=== PATIENT | female | born 1955 | race Caucasian/White ===

== ENCOUNTER 2023-06-04 12:43 | Outpatient (OUT) | payer MEDICARE, SELFPAY ==
--- NOTE | 2023-06-04 12:46 | MM_ITS ---
Patient Name: CLAY SARKAR MR#: [id number] : 1955 Exam Date: 06/04/2023 Ordering Doctor: DR MONA PARADA RADIOLOGY REPORT PROCEDURE: MM TOMOSYNTHESIS SCREENING BI COMPARISON: MG MAMM SCREEN YOSEF W CAD, 07/31/2018. MM TOMOSYNTHESIS SCREENING BI, 12/22/2021. INDICATIONS: screening Calculator Name NCI Breast Cancer Risk Assessment Tool 5 Year Breast Cancer Risk 1.90% Lifetime Breast Cancer Risk 6.70% Personal Breast Cancer No Personal Ovarian Cancer No Treatments None Family Cancers Cousin-maternal with breast cancer at age 61. LOCATION: [facility] BREAST COMPOSITION: Scattered areas fibroglandular density. FINDINGS: DIAGNOSTIC CATEGORY 2--BENIGN FINDING. NO CHANGE FROM COMPARISON. Scattered benign-appearing nodules are present. Scattered benign-appearing calcifications are present. Scattered benign-appearing lymph nodes are present. RIGHT BREAST: No significant suspicious finding. LEFT BREAST: No significant suspicious finding. RECOMMENDATIONS: ROUTINE MAMMOGRAM AND CLINICAL EVALUATION IN 12 MONTHS. PLEASE NOTE: A NORMAL MAMMOGRAM DOES NOT EXCLUDE THE POSSIBILITY OF BREAST CANCER. A CLINICALLY SUSPICIOUS PALPABLE LUMP SHOULD BE BIOPSIED. Dictated by: Olman Tellez MD on 06/04/2023 at 14:51 Approved by: Olman Tellez MD on 06/04/2023 at 14:52
== END 2023-06-04 12:44 | disposition home or self-care (01) ==
LOC: MAMMO 12:44
PROVIDERS: PCP Physician Assistant; Visit Provider Physician Assistant
DX: Z12.31 Encounter for screening mammogram for malignant neoplasm of breast (principal); Z80.3 Family history of malignant neoplasm of breast
CPT/HCPCS: 77063; 77067

== ENCOUNTER 2023-07-09 22:29 | Outpatient (REF) | payer MEDICARE, SELFPAY ==
--- OUTSIDE RECORDS SUMMARY | 2023-07-09 22:34 | XMS_ITS | CCD ---
Author Organization [facility] Care Team Providers Care [employer] Name Role Phone RAMÓN GALEANO C Attending Unavailable RAMÓN GALEANO C Admitting Unavailable TIMOTHYNAYE MCCONNELL Consulting Unavailable AVRIL HARPER Primary Care Unavailable Liseth Godoy Unavailable LINDSAY, DR BAUM Admitting Unavailable LINDSAY, DR BAUM Attending Unavailable LINDSAY, DR BAUM Consulting Unavailable MEREDITH, DR MACKENZIE Admitting Unavailable MEREDITH, DR MACKENZIE Attending Unavailable DR AVRIL HARPER Consulting Unavailable LINDSAY, DR BAUM Admitting Unavailable LINDSAY, DR BAUM Attending Unavailable LINDSAY, DR BAUM Consulting Unavailable Rosibel Martinez Primary Care Provider ROSIBEL QUINTANILLA Attending Unavailable ROSIBEL QUINTANILLA Attending Unavailable ROSIBEL QUINTANILLA Attending Unavailable Allergies Allergy Classification Reported Allergen(s) Allergy Type Date of Onset Reaction(s) Facility (1 source) Acetaminophen / HYDROcodone Drug Allergy stomach upset [facility] Other (3 sources) Codeine Drug Allergy 08-01-19 [facility] (1 source) HYDROcodone Drug Allergy stomach upset [facility] Other (1 source) Sulfonamides (Antibiotic) Drug allergy [facility] Other (1 source) NSAIDs Drug allergy (disorder) 01-26-20 15 [facility] (1 source) Sulfonamides (Antibiotic) Drug allergy (disorder) 09-04-19 14 [facility] (2 sources) Acetaminophen / HYDROcodone Drug Allergy 08-21-19 [facility] (2 sources) HYDROcodone Drug Allergy 08-01-19 Nausea Only [facility] (2 sources) Non-steroidal anti-inflammator y agent Drug Intolerance 08-21-19 [facility] (2 sources) Sulfonamides (Antibiotic) Drug Allergy 08-01-19 Hives [facility] (2 sources) vortioxetine Drug Allergy 08-01-19 [facility] Medications Current Medications Medication Drug Class(es) Dates Sig (Normalized) Sig (Original) albuterol 0.83 mg/ml inhalation solution (5 sources) beta2-Adrenergic Agonist Start: 03-15-2018 albuterol (2.5 MG/3ML) 0.083% nebulizer solution every 8 (eight) hours. 0 03/15/2018 Active albuterol HFA 90 mcg/act inhaler every 4 (four) hours. 0 Active Albuterol Sulfat e Active ALPRAZolam 0.5 mg oral tablet (5 sources) Benzodiazepine take 1 tablet by mouth in the morning ALPRAZolam (Xanax) 0.25 MG tablet Take 0.25 mg by mouth in the morning and 0.25 mg before bedtime. 0 Active take 1 tablet by sandra th three times daily as needed for anxiety ALPRAZolam (Xanax) 0.5 MG tablet Take 1 tablet by mouth 3 (three) times a day as needed for anxiety. 0 Active ALPRAZolam Activ e ascorbic acid 60 mg / beta carotene 5000 unt / copper sulfate 40 mg / dl-alpha tocopheryl acetate 30 unt / sodium selenite 0.04 mg / zinc oxide 40 mg oral tablet (2 sources) Vitamin C Multiple Vitamin (Multivitamin Adult) tablet 1 (one) time each day at the same time. 0 Active atorvastatin 10 mg oral tablet (2 sources) HMG-CoA Reductase Inhibitor Start: 06-14-2022 End: 04-20-2023 atorvastatin (Lipitor) 10 MG tablet 1 (one) time each day at the same time. 0 06/14/2022 04/20/2023 Discontinued (Side effects) azelastine hydrochloride 0.206 mg/actuat metered dose nasal spray (2 sources) Histamine-1 Receptor Antagonist Start: 08-18-2022 Azelastine HCl 0.15 % solution Indications: Other allergic rhinitis 1 spray in the morning and 1 spray before bedtime. 30 mL 2 08/18/2022 Active 60 actuat budesonide 0.16 mg/actuat / formoterol fumarate 0.0045 mg/actuat metered dose inhaler (4 sources) Corticosteroid, beta2-Adrenergic Agonist Start: 04-20-2023 budesonide-formoterol (Symbicort) 160-4.5 MCG/ACT inhaler Indications: Moderate persistent asthma without complication (CMS/HCC) Inhale 2 puffs every 12 (twelve) hours 3 each 3 04/20/2023 Active Start: 04-20-2023 budesonide-for moterol (Symbicort) 160-4.5 MCG/ACT inhaler Indications: Moderate persistent asthma without complication (CMS/HCC) Inhale 2 puffs every 12 (twelve) hours 3 each 3 04/20/2023 Active Start: 06-09-2022 End: 04-20-2023 budesonide-formoterol (Symbi nahum) 160-4.5 MCG/ACT inhaler every 12 (twelve) hours. 0 06/09/2022 04/20/2023 Discontinued (Reorder) Calcium Carbonate (1 source) Tums Active cetirizine hydrochloride 10 mg oral tablet (3 sources) Histamine-1 Receptor Antagonist cetirizine (ZyrTEC ALLERGY) 10 MG tablet 1 (one) time each day at the same time. 0 Active ZyrTEC Allergy A ctive cholecalciferol 0.125 mg oral capsule (2 sources) Vitamin D Start: 10-03-2022 take 1 capsule by mouth once in the morning Cholecalciferol (Vitamin D) 125 MCG (5000 UT) capsule Indications: Vitamin D deficiency Take 1 capsule (125 mcg) by mouth in the morning. 100 capsule 3 10/03/2022 Active Elderberry preparation (1 source) Elderberry Activ e empagliflozin 25 mg oral tablet (2 sources) Sodium-Glucose Cotransporter 2 Inhibitor Start: 04-20-2023 take 1 tablet by mouth in the morning empagliflozin (Jardiance) 25 MG Indications: Controlled type 2 diabetes mellitus without complication, without long-term current use of insulin (CMS/HCC) Take 1 tablet (25 mg) by mouth in the morning. 30 tablet 5 04/20/2023 Active Start: 04-20-2023 take 1 tablet by sandra th in the morning empagliflozin (Jardiance) 25 MG Indications: Controlled type 2 diabetes mellitus without complication, without long-term current use of insulin (CMS/HCC) Take 1 tablet (25 mg) by mouth in the morning. 30 tablet 5 04/20/2023 Active escitalopram 10 mg oral tablet (2 sources) Serotonin Reuptake Inhibitor Start: 11-17-2022 take 1 tablet by mouth every 30 days in the morning escitalopram (Lexapro) 10 MG tablet TAKE 1 TABLET BY MOUTH IN THE MORNING (INCREASE after 30 days) 0 11/17/2022 Active fluticasone propionate 0.05 mg/actuat metered dose nasal spray (3 sources) Corticosteroid Start: 12-18-2018 fluticasone (Flonase) 50 MCG/ACT nasal spray 1 (one) time each day at the same time. 0 12/18/2018 Active Fluticasone Furo ate Active fluticasone / salmeterol (1 source) Corticosteroid, beta2-Adrenergic Agonist Advair Diskus Active methylPREDNISolone 4 mg oral tablet (1 source) Corticosteroid Start: 2021 Medrol 4 MG as directed Orally as directed for 6 days Jan, Active 24 hr metoprolol succinate 50 mg extended release oral tablet (5 sources) beta-Adrenergic Ioana Start: 2023 take 1 tablet by mouth every twenty-four hours in the morning metoprolol succinate XL (Toprol-XL) 50 MG 24 hr tablet Indications: Essential hypertension (CMS/HCC) Take 1 tablet (50 mg) by mouth in the morning. 100 tablet 3 04/20/2023 Active Start: 04-20-2023 take 1 tablet by sandra th every twenty-four hours in the morning metoprolol succinate XL (Toprol-XL) 50 MG 24 hr tablet Indications: Essential hypertension (CMS/HCC) Take 1 tablet (50 mg) by mouth in the morning. 100 tablet 3 04/20/2023 Active End: 04-20-2023 metoprolol succinate XL (Toprol-XL) 50 MG 24 hr tablet 1 (one) time each day at the same time. 0 04/20/2023 Discontinued (Reorder) Metoprolol Succi aimee Active montelukast 10 mg oral tablet (2 sources) Leukotriene Receptor Antagonist montelukast (Singulair) 10 MG tablet 1 (one) time each day at the same time. 0 Active omeprazole 40 mg delayed release oral capsule (3 sources) Proton Pump Inhibitor take 1 capsule by mouth twice daily omeprazole (PriLOSEC) [address] capsule TAKE 1 CAPSULE BY MOUTH TWICE DAILY for 90 0 Active Omeprazole Activ e ondansetron 4 mg disintegrating oral tablet (2 sources) Serotonin-3 Receptor Antagonist Start: 01-08-2023 take 1 tablet by mouth every eight hours as needed for nausea and vomiting and nausea and nausea ondansetron ODT (Zofran-ODT) 4 MG disintegrating tablet Indications: Nausea Take 1 tablet (4 mg) by mouth every 8 (eight) hours if needed for nausea or vomiting. 30 tablet 0 01/08/2023 Active 0.25 mg, 0.5 mg dose 1.5 ml semaglutide 1.34 mg/ml pen injector (2 sources) Start: 10-02-2022 End: 04-20-2023 inject 0.25 mg by subcutaneous injection every week semaglutide (Ozempic) 2 MG/1.5ML solution pen-injector Indications: Controlled type 2 diabetes mellitus without complication, without long-term current use of insulin ([facility]) Inject 0.25 mg under the skin 1 (one) time per week. 1.5 mL 4 10/02/2022 04/20/2023 Discontinued (Side effects) Vitamin B Complex (1 source) Vitamin B Comple x Active Vitamin D3 (1 source) Vitamin D3 Activ e zolpidem tartrate 10 mg oral tablet (2 sources) gamma-Aminobutyr ic Acid-ergic Agonist zolpidem (Ambien) 10 MG tablet 1 (one) time each day at the same time. 0 Active Completed/Discontinued Medications Medication Drug Class(es) Dates Sig (Normalized) Sig (Original) cefTRIAXone (2 sources) Cephalosporin Antibacterial Start: 12-08-2013 Rocephin 500 mg Nov, 500 mg Start: 07-24-2013 Rocephin 500 m g July, 1000 mg Problems Active Problems Problem Classification Problem Date Documented Date Episodic/Chronic Acquired foot deformities (6 sources) Acquired left hallux valgus; Translations: [Hallux valgus (acquired), left foot] Onset: 10-31-2017 08-18-2022 Chronic Anxiety disorders (4 sources) Generalized anxiety disorder; Translations: [Generalized anxiety disorder] Onset: 11-21-2016 08-18-2022 Chronic Aortic; peripheral; and visceral artery aneurysms (1 source) Radial artery aneurysm; 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] Chronic Asthma (10 sources) Exacerbation of mild persistent asthma; Translations: [Mild persistent asthma with (acute) exacerbation] Onset: 03-29-2018 Resolved: 10-02-2022 04-20-2023 Chronic Diabetes mellitus with complications (1 source) 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; Translations: [Type 2 diabetes mellitus with diabetic autonomic (poly)neuropathy] Chronic Diabetes mellitus without complication (4 sources) Type 2 diabetes mellitus without complication; Translations: [Type 2 diabetes mellitus without complications] Onset: 01-14-2018 04-20-2023 Chronic Diverticulosis and diverticulitis (4 sources) Diverticulosis of colon; Translations: [Diverticulosis of large intestine without perforation or abscess without bleeding] Onset: 03-27-2016 08-18-2022 Chronic Endometriosis (2 sources) Endometriosis (clinical); Translations: [Endometriosis, unspecified] Onset: 08-18-2022 08-18-2022 Chronic Esophageal disorders (3 sources) Gastroesophageal reflux disease; Translations: [Gastro-esophageal reflux disease without esophagitis] Onset: 03-13-2019 08-18-2022 Chronic Essential hypertension (4 sources) Essential hypertension; Translations: [Essential (primary) hypertension] Onset: 11-23-2017 04-20-2023 Chronic Headache; including migraine (2 sources) Migraine with aura; Translations: [Migraine with aura, not intractable, without status migrainosus] Onset: 04-26-2015 08-18-2022 Chronic Headache; including migraine (1 source) Headache; including migraine; Translations: [HEADACHE UNSPECIFIED] Onset: 03-31-2021 Immunizations and screening for infectious disease (3 sources) Contact with and (suspected) exposure to other viral communicable diseases; Translations: [Encounter for screening for human papillomavirus (HPV)] Onset: 07-29-2021 Episodic Joint disorders and dislocations; trauma-related (2 sources) Derangement of left knee; Translations: [Unspecified internal derangement of left knee] Onset: 11-17-2020 08-18-2022 Chronic Menopausal disorders (4 sources) Disorder associated with menstruation AND/OR menopause; Translations: [Unspecified menopausal and perimenopausal disorder] Onset: 08-18-2022 08-18-2022 Chronic Mood disorders (8 sources) Recurrent major depressive episodes, moderate ; Translations: [Major depressive disorder, recurrent, moderate] Onset: 05-17-2017 04-20-2023 Chronic Osteoarthritis (2 sources) Arthritis of left knee; Translations: [Unilateral primary osteoarthritis, left knee] Onset: 12-24-2020 08-18-2022 Chronic Osteoporosis (2 sources) Senile osteoporosis; Translations: [Age-related osteoporosis without current pathological fracture] Onset: 08-18-2022 08-18-2022 Chronic Other ear and sense organ disorders (2 sources) Hearing loss; Translations: [Unspecified hearing loss, unspecified ear] Onset: 12-18-2018 08-18-2022 Chronic Other ear and sense organ disorders (2 sources) Sensorineural hearing loss, bilateral; Translations: [Sensorineural hearing loss, bilateral] Onset: 01-01-2019 08-18-2022 Chronic Other female genital disorders (2 sources) Pain in female genitalia on intercourse; Translations: [Unspecified dyspareunia] Onset: 08-18-2022 08-18-2022 Chronic Other lower respiratory disease (1 source) Personal history of other diseases of the respiratory system Episodic Other nutritional; endocrine; and metabolic disorders (2 sources) Obesity; Translations: [Obesity, unspecified] Onset: 06-23-2020 08-18-2022 Chronic Other screening for suspected conditions (not mental disorders or infectious disease) (4 sources) CT of chest abnormal; Translations: [Abnormal findings on diagnostic imaging of other specified body structures] Onset: 01-30-2019 08-18-2022 Chronic Other upper respiratory disease (2 sources) Allergic rhinitis; Translations: [Other allergic rhinitis] Onset: 04-26-2015 08-18-2022 Chronic Thyroid disorders (2 sources) Hypothyroidism; Translations: [Hypothyroidism, unspecified] Onset: 04-26-2015 08-18-2022 Chronic Unclassified (3 sources) CONTACT W/AND (SUSP) EXPOS COVID-19; Translations: [CONTACT W/AND (SUSP) EXPOS COVID-19] Onset: 03-31-2021 Past or Other Problems Problem Classification Problem Date Documented Da te Episodic/Chronic Cancer of other female genital organs (2 sources) Low grade squamous intraepithelial lesion on vaginal Papanicolaou smear; Translations: [Low grade squamous intraepithelial lesion on cytologic smear of vagina (LGSIL)] Onset: 08-18-2022 08-18-2022 Episodic Malaise and fatigue (1 source) Other fatigue; Translations: [OTHER FATIGUE] Onset: 03-31-2021 Episodic Nonspecific chest pain (1 source) Other chest pain; Translations: [OTHER CHEST PAIN] Onset: 03-31-2021 Episodic Other disorders of stomach and duodenum (3 sources) Gastroparesis syndrome; Translations: [Gastroparesis] Onset: 08-15-2019 08-18-2022 Episodic Other female genital disorders (1 source) Other specified noninflammatory disorders of vagina; Translations: [OTH SPEC NONINFLAMMATORY D/O VAGINA] Onset: 07-29-2021 Episodic Other gastrointestinal disorders (2 sources) Constipation; Translations: [Constipation, unspecified] Onset: 03-07-2016 08-18-2022 Episodic Other non-traumatic joint disorders (2 sources) Pain in wrist; Translations: [Pain in unspecified wrist] Onset: 10-15-2016 08-18-2022 Episodic Other non-traumatic joint disorders (2 sources) Arthralgia of the ankle and/or foot; Translations: [Pain in unspecified ankle and joints of unspecified foot] Onset: 11-24-2015 08-18-2022 Episodic Other nutritional; endocrine; and metabolic disorders (2 sources) Overweight; Translations: [Overweight] Onset: 08-18-2022 08-18-2022 Episodic Other screening for suspected conditions (not mental disorders or infectious disease) (10 sources) Encounter for screening for malignant neoplasm of cervix; Translations: [Mammography abnormal] Onset: 02-21-2016 Episodic Other skin disorders (2 sources) Mass of wrist; Translations: [Localized swelling, mass and lump, left upper limb] Onset: 10-11-2016 08-18-2022 Episodic Other upper respiratory disease (2 sources) Polyp of nasal cavity and/or nasal sinus; Translations: [Nasal polyp, unspecified] Onset: 12-27-2018 08-18-2022 Episodic Residual codes; unclassified (2 sources) Insomnia; Translations: [Insomnia, unspecified] Onset: 11-21-2016 08-18-2022 Episodic Residual codes; unclassified (2 sources) Family history of cardiac disorder; Translations: [Family history of ischemic heart disease and other diseases of the circulatory system] Onset: 10-02-2022 10-02-2022 Episodic Spondylosis; intervertebral disc disorders; other back problems (4 sources) Sciatica; Translations: [Sciatica, unspecified side] Onset: 09-30-2018 08-18-2022 Episodic Unclassified (1 source) CONTACT W/AND (SUSP) EXPOS COVID-19; Translations: [CONTACT W/AND (SUSP) EXPOS COVID-19] Onset: 03-29-2021 Viral infection (4 sources) Human papilloma virus infection; Translations: [Papillomavirus as the cause of diseases classified elsewhere] Onset: 10-31-2017 08-18-2022 Episodic Viral infection (1 source) COVID-19 Results Test Name Value Interpretation Reference Range Facility HbA1c (Bld) [Mass fraction]o n 04-20-2023 Interpretation and review of laboratory results [facility]-20-2023 HbA1c (Bld) [Mass fraction] 7.0 % [facility] COVID/FLU RT-PCRon 2 SARS-CoV-2 (COVID-19) RNA BONNIE+probe Ql (Unsp spec) Positive [facility] Other COVID/FLU RT-PCR Negative [employer] Other PAP ACOG PANEL 2: 30 to 65on 08-03-2021 . . Normal [facility] Comment on above: Result Comment: Perf ormed at: WB Performed By: #### [id number] #### [facility] [address] [address] [address] Parth Brooks Age Gdln ACOG Testing 30-65 Normal [facility] Comment on above: Performed By: #### [id number] #### [facility] [address] [address] [address] Parth Brooks DIAGNOSIS: Comment Abnormal [facility] Comment on above: Result Comment: EPIT HELIAL CELL ABNORMALITY. LOW GRADE SQUAMOUS INTRAEPITHELIAL LESION (LSIL). CELLULAR CHANGES ASSOCIATED WITH ATROPHY ARE PRESENT. Performed at: WB Performed By: #### [id number] #### [facility] [address] [address] [address] Parth Brooks Electronically signed by: Comment Normal [facility] Comment on above: Result Comment: Brandie Cleveland MD, Pathologist Performed at: WB Performed By: #### [id number] #### [facility] [address] [address] [address] Parth Brooks HPV Aptima Positive Abnormal Negative [facility] Comment on above: Result Comment: This nucleic acid amplification test detects fourteen high-risk HPV types (16,18,31,33,35,39,45,51,52,56,58,59,66,68) without differentiation. Performed at: =G Performed By: #### [id number] #### [facility] [address] [place] [address] Dr. Parth Brooks Methodology: Comment Normal [facility] Comment on above: Result Comment: This liquid based ThinPrep(R) pap test was screened with the use of an image guided system. Performed at: WB Performed By: #### [id number] #### [facility] [address] [place] [address] Dr. Parth Brooks Note: Comment Normal [facility] Comment on above: Result Comment: The Pap smear is a screening test designed to aid in the detection of premalignant and malignant conditions of the uterine cervix. It is not a diagnostic procedure and should not be used as the sole means of detecting cervical cancer. Both false-positive and false-negative reports do occur. . Performed at: WB Performed By: #### [id number] #### [facility] [address] [address] [address] Parth Brooks Pathologist Provided ICD10 Comment Normal [facility] Comment on above: Result Comment: [id number] Performed at: WB Performed By: #### [id number] #### [facility] [address] [place] [address] Dr. Parth Brooks Performed by: Comment Normal [facility] Comment on above: Result Comment: Deanna Oleary, Vocational Education Teacher (ASCP) Performed at: WB Performed By: #### [id number] #### [facility] [address] [place] [address] Dr. Parth Brooks Recommendation: Comment Abnormal [facility] Comment on above: Result Comment: Sugg est follow up as clinically appropriate. Performed at: WB Performed By: #### [id number] #### [facility] [address] [place] [address] Dr. Parth Brooks Specimen adequacy: Comment Normal [facility] Comment on above: Result Comment: Sati sfactory for evaluation. Endocervical and/or squamous metaplastic cells (endocervical component) are present. Performed at: WB Performed By: #### [id number] #### [facility] [address] [place] [address] Dr. Parth Brooks CHLAMYDIA/GONOCOCCUS BONNIE (SW AB/URINE/PAPon 07-29-2021 Chlamydia trachomatis, BONNIE Negative Normal Negative [facility] Comment on above: Performed By: #### C T/NGNA #### [facility] [address] [place] [address] Dr. Parth Brooks Neisseria gonorrhoeae, BONNIE Negative Normal Negative [facility] Comment on above: Performed By: #### C T/NGNA #### [facility] [address] [place] [address] Dr. Parth Brooks VAGINITIS/VAGINOSIS DNA PROB Narendra 07-28-2021 Suzanne species Negative Normal Negative [facility] Comment on above: Performed By: #### V AGINT #### [facility] [address] [place] [address] Dr. Parth Brooks Gardnerella vaginalis Negative Normal Negative [facility] Comment on above: Performed By: #### V AGINT #### [facility] [address] [place] [address] Dr. Parth Brooks Trichomonas vaginalis Negative Normal Negative [facility] Comment on above: Performed By: #### V AGINT #### [facility] [address] [place] [address] Dr. Parth Brooks Q - CULTURE,URINE,ROUTINEon 06-08-2021 CULTURE, URINE, ROUTINE SEE NOTE Normal [facility] [employer] Comment on above: Order Comment: [facility] Testing performed at: QPT, [facility], [address], [address] [facility], [place], [address], Curb Worker: Duncan Reyna MD [facility] Collection Date/Time: [facility] Results Received Date/Time: [facility] Reported Date/Time: Result Comment: CULT URE, URINE, ROUTINE Micro Number: [id number] Test Status: Final Specimen Source: Urine Specimen Quality: Adequate Result: No Growth Performed By: #### [id number] #### [facility] [address] [place] [address] Carcinoembry. Antig.on 05-28 Carcinoembry. Antig. 3.6 ng/mL Normal <3.9 [facility] Comment on above: Result Comment: The [employer] ECLIA assay is used. Results obtained with different assay methods cannot be used interchangeably. Performed By: #### C USAMA GLYHGB #### [address] [address] Product Safety Test Engineer: Henrique Hill MD Cult,Urineon 05-28-2021 Cult,Urine Specimen Description .CLEAN CATCH URINE Culture NO GROWTH Report Status FINAL 05/28/2021 Normal [facility] Comment on above: Performed By: #### U RC #### [facility] [address] [place], [place] [id number] Product Safety Test Engineer: Michoacano Emanuel DO [address] [address] Product Safety Test Engineer: Henrique Hill MD Hemoglobin A1Con 05-28-2021 Glucose [Mass/Vol] 114 mg/dL Normal [facility] Comment on above: Result Comment: The ADA and AACC recommend providing the estimated average glucose result to permit better patient understanding of their HBA1c result. Performed By: #### C USAMA, GLYHGB #### [address] [address] Product Safety Test Engineer: Henrique Hill MD HbA1c (Bld) [Mass fraction] 5.6 % Normal 4.0-6.0 [facility] Comment on above: Performed By: #### C EA, GLYHGB #### [id number] [place] [address] Product Safety Test Engineer: Henrique Hill MD Acetaminophenon 05-26-2021 Acetaminophen [Mass/Vol] ug/mL Low 10-30 [facility] Comment on above: Performed By: #### U RC #### [facility] [address] [place] [address] Product Safety Test Engineer: Michoacano Emanuel DO [id number] [place] [address] Product Safety Test Engineer: Henrique Hill MD Basic Metabolic Profon 05-26 (cont.) Normal [facility] Comment on above: Result Comment: Aver age GFR for 60-69 years old: 85 mL/min/1.73sq m Chronic Kidney Disease: <60 mL/min/1.73sq m Kidney failure: <15 mL/min/1.73sq m eGFR calculated using average adult body mass. Additional eGFR calculator available at: [email or web address]_[email or web address] Performed By: #### A WILLIS GAMING, ANNE MARIE, ALCPhilip, BMP #### [facility] [address] [place] [address] Product Safety Test Engineer: Michoacano Emanuel DO Anion gap [Moles/Vol] 12 mmol/L Normal 9-17 [facility] Comment on above: Performed By: #### A WILLIS GAMING, SALI, ALCB, BMP #### [facility] [address] [place] [address] Product Safety Test Engineer: Michoacano Emanuel DO Calcium [Mass/Vol] 10.0 mg/dL Normal 8.6-10.4 [facility] Comment on above: Performed By: #### A CET, CDP, SALI, ALCB, BMP #### [facility] [address] [place] [address] Product Safety Test Engineer: Michoacano Emanuel DO Chloride [Moles/Vol] 102 mmol/L Normal 98-107 [facility] Comment on above: Performed By: #### A CET, CDP, SALI, ALCB, BMP #### [facility] [address] [place] [address] Product Safety Test Engineer: Michoacano Emanuel DO CO2 [Moles/Vol] 26 mmol/L Normal 20-31 [facility] Comment on above: Performed By: #### A CET, CDP, SALI, ALCB, BMP #### [facility] [place] [address] Product Safety Test Engineer: Michoacano Emanuel DO Creatinine [Mass/Vol] 0.90 mg/dL Normal 0.50-0.90 [facility] Comment on above: Performed By: #### A MEKHI, CDP, SALI, ALCB, BMP #### [facility] [place] [address] Product Safety Test Engineer: Michoacano Emanuel DO GFR, Amer >60 Normal >60 [facility] Comment on above: Performed By: #### A CET, CDP, SALI, ALCB, BMP #### [facility] [facility] [place] [address] Product Safety Test Engineer: Michoacano Emanuel DO GFR,non Amer >60 Normal >60 [facility] Comment on above: Performed By: #### A CET, CDP, SALI, ALCB, BMP #### [facility] [place] [address] Product Safety Test Engineer: Michoacano Emanuel DO Glucose [Mass/Vol] 160 mg/dL High 70-99 [facility] Comment on above: Performed By: #### A CET, CDP, SALI, ALCB, BMP #### [facility] [address] [place] [address] Product Safety Test Engineer: Michoacano Emanuel DO Potassium [Moles/Vol] 3.9 mmol/L Normal 3.7-5.3 [facility] Comment on above: Performed By: #### A CET, CDP, SALI, ALCB, BMP #### [facility] [address] [place] [address] Product Safety Test Engineer: Michoacano Emanuel DO Sodium [Moles/Vol] 140 mmol/L Normal 135-144 [facility] Comment on above: Performed By: #### A CET, CDP, SALI, ALCB, BMP #### [facility] [place] [address] Product Safety Test Engineer: Michoacano Emanuel DO Urea nitrogen [Mass/Vol] 13 mg/dL Normal 8-23 [facility] Comment on above: Performed By: #### A MEKHI, CDP, SALI, ALCB, BMP #### [facility] [place] [address] Product Safety Test Engineer: Michoacano Emanuel DO CBC with Diffon 05-26-2021 Abs. Basophil 0.10 k/uL Normal 0.0-0.2 [facility] Comment on above: Performed By: #### A CET, CDP, SALI, ALCB, BMP #### [facility] [place] [address] Product Safety Test Engineer: Michoacano Emanuel DO Abs.Neutrophil (Seg) 5.30 k/uL Normal 1.3-9.1 [facility] Comment on above: Performed By: #### A CET, CDP, SALI, ALCB, BMP #### [facility] [place] [address] Product Safety Test Engineer: Michoacano Emanuel DO Basophils/100 WBC (Bld) 1 % Normal 0-2 [facility] Comment on above: Performed By: #### A CET, CDP, SALI, ALCB, BMP #### [facility] [address] [facility] [place] [address] Product Safety Test Engineer: Michoacano Emanuel DO Eosinophils (Bld) [#/Vol] 0.20 10*3/uL Normal 0.0-0.4 [facility] Comment on above: Performed By: #### A CET, CDP, SALI, ALCB, BMP #### [facility] [place] [address] Product Safety Test Engineer: Michoacano Emanuel DO Eosinophils/100 WBC (Bld) 2 % Normal 0-4 [facility] Comment on above: Performed By: #### A CET, CDP, SALI, ALCB, BMP #### [facility] [address] [place] [address] Product Safety Test Engineer: Michoacano Emanuel DO Erythrocyte distribution width (RBC) [Ratio] 13.3 % Normal 11.5-14.9 [facility] Comment on above: Performed By: #### A MEKHI, CDP, SALI, ALCB, BMP #### [facility] [address] [place] [address]. [place] [address] Product Safety Test Engineer: Michoacano Emanuel DO Hematocrit (Bld) [Volume fraction] 43.7 % Normal 36-46 [facility] Comment on above: Performed By: #### A CET, CDP, SALI, ALCB, BMP #### [facility] [address] [place] [address]. [place] [address] Product Safety Test Engineer: Michoacano Emanuel DO Hemoglobin (Bld) [Mass/Vol] 15.2 g/dL Normal 12.0-16.0 [facility] Comment on above: Performed By: #### A CET, CDP, SALI, ALCB, BMP #### [facility] [address] [place] [address] Product Safety Test Engineer: Michoacano Emanuel DO Lymphocytes (Bld) [#/Vol] 3.10 10*3/uL Normal 1.0-4.8 [facility] Comment on above: Performed By: #### A CET, CDP, SALI, ALCB, BMP #### [facility] [address] [place] [address] Product Safety Test Engineer: Michoacano Emanuel DO Lymphocytes/100 WBC (Bld) 35 % Normal 24-44 [facility] Comment on above: Performed By: #### A CET, CDP, SALI, ALCB, BMP #### [facility] [place] [address] Product Safety Test Engineer: Michoacano Emanuel DO MCH (RBC) [Entitic mass] 30.4 pg Normal 26-34 [facility] Comment on above: Performed By: #### A MEKHI, CDP, SALI, ALCB, BMP #### [facility] [place] [address] Product Safety Test Engineer: Michoacano Emanuel DO MCHC (RBC) [Mass/Vol] 34.9 g/dL Normal 31-37 [facility] Comment on above: Performed By: #### A MEKHI, CDP, SALI, ALCB, BMP #### [facility] [facility] [place] [address] Product Safety Test Engineer: Michoacano Emanuel DO MCV (RBC) [Entitic vol] 87.4 fL Normal 80-100 [facility] Comment on above: Performed By: #### A CET, CDP, SALI, ALCB, BMP #### [facility] [facility] [place] [address] Product Safety Test Engineer: Michoacano Emanuel DO Monocytes (Bld) [#/Vol] 0.40 10*3/uL Normal 0.1-1.3 [facility] Comment on above: Performed By: #### A CET, CDP, SALI, ALCB, BMP #### [facility] [address] [place] [address] Product Safety Test Engineer: Michoacano Emanuel DO Monocytes/100 WBC (Bld) 5 % Normal 1-7 [facility] Comment on above: Performed By: #### A CET, CDP, SALI, ALCB, BMP #### [facility] [address] [place] [address] Product Safety Test Engineer: Michoacano Emanuel DO Neutrophil (Seg) 57 % Normal 36-66 [facility] Comment on above: Performed By: #### A CET, CDP, SALI, ALCB, BMP #### [facility] [place] [address] Product Safety Test Engineer: Michoacano Emanuel DO Platelet mean volume (Bld) [Entitic vol] 7.4 fL Normal 6.0-12.0 [facility] Comment on above: Performed By: #### A MEKHI, CDP, SALI, ALCB, BMP #### [facility] [facility] [place] [address] Product Safety Test Engineer: Michoacano Emanuel DO Platelets (Bld) [#/Vol] 270 10*3/uL Normal 150-450 [facility] Comment on above: Performed By: #### A MEKHI, CDP, SALI, ALCB, BMP #### [facility] [address] [facility] [place] [address] Product Safety Test Engineer: Michoacano Emanuel DO RBC (Bld) [#/Vol] 5.00 10*6/uL Normal 4.0-5.2 [facility] Comment on above: Performed By: #### A CET, CDP, SALI, ALCB, BMP #### [facility] [address] [place] [address] Product Safety Test Engineer: Michoacano Emanuel DO WBC (Bld) [#/Vol] 9.1 10*3/uL Normal 3.5-11.0 [facility] Comment on above: Performed By: #### A CET, CDP, SALI, ALCB, BMP #### [facility] [address] [place] [address] Product Safety Test Engineer: Michoacano Emanuel DO Drug Scr, Abuse, Uron 2021 Amphetamine(s),Ur Negative Normal NEG [facility] Comment on above: Result Comment: (Positive cutoff 1000 ng/mL) Performed By: #### U MICAO, FRANCESCA, UA #### [facility] [address] [place] [address] Product Safety Test Engineer: Michoacano Emanuel DO Barbiturate(s),Ur Negative Normal NEG [facility] Comment on above: Result Comment: (Positive cutoff 200 ng/mL) Performed By: #### U REHANO FRANCESCA, UA #### [facility] [address] [place] [address] Product Safety Test Engineer: Michoacano Emanuel DO Benzodiazepine(s) Negative Normal NEG [facility] Comment on above: Result Comment: (Positive cutoff 200 ng/mL) Performed By: #### U MICAO, FRANCESCA, UA #### [facility] [address] [place] [address] Product Safety Test Engineer: Michoacano Emanuel DO Cannabinoid(s),Ur Negative Normal NEG [facility] Comment on above: Result Comment: (Positive cutoff 50 ng/mL) Performed By: #### U MICAO, FRANCESCA, UA #### [facility] [address] [place] [address] Product Safety Test Engineer: Michoacano Emanuel DO Cocaine Metabolite Negative Normal NEG [facility] Comment on above: Result Comment: (Positive cutoff 300 ng/mL) Performed By: #### U MICAO, FRANCESCA, UA #### [facility] [address] [place] [address] Product Safety Test Engineer: Michoacano Emanuel DO Interpretive Info Assay provides medical screening only. The absence of expected drug(s) and/or Normal [facility] Comment on above: Result Comment: meta bolite(s) may indicate diluted or adulterated urine, limitations of testing or timing of collection. Testing for legal purposes should be confirmed by another method. To request confirmation of test result, please call the lab within 7 days of sample submission. Performed By: #### U REHANO FRANCESCA, UA #### [facility] [address] [place] [address] Product Safety Test Engineer: Michoacano Emanuel DO Methadone Ql (U) Negative Normal NEG [facility] Comment on above: Result Comment: (Positive cutoff 300 ng/mL) Performed By: #### U REHANO FRANCESCA, UA #### [facility] [address] [place] [address] Product Safety Test Engineer: Michoacano Emanuel DO Opiate(s), Ur Negative Normal NEG [facility] Comment on above: Result Comment: (Positive cutoff 300 ng/mL) Performed By: #### U MICAO, FRANCESCA, UA #### [facility] [address] [place] [address] Product Safety Test Engineer: Michoacano Emanuel DO Oxycodone, Urine Negative Normal NEG [facility] Comment on above: Result Comment: (Positive cutoff 100 ng/mL) Performed By: #### U MICAO, FRANCESCA, UA #### [facility] [address] [place] [address] Product Safety Test Engineer: Michoacano Emanuel DO Phencyclidine, Ur Negative Normal NEG [facility] Comment on above: Result Comment: (Positive cutoff 25 ng/mL) Performed By: #### U MICAO, FRANCESCA, UA #### [facility] [address] [facility] [place] [address] Product Safety Test Engineer: Michoacano Emanuel DO Ethanol Alcoholon 05-26-2021 Ethanol [Mass/Vol] mg/dL Normal <10 [facility] Comment on above: Performed By: #### A CET, CDP, SALI, ALCB, BMP #### [facility] [address] [facility] [place] [address] Product Safety Test Engineer: Michoacano Emanuel DO Ethanol percent <0.010 Normal [facility] Comment on above: Performed By: #### A CET, CDP, SALI, ALCB, BMP #### [facility] [address] [facility] [place] [address] Product Safety Test Engineer: Michoacano Emanuel DO [id number] 05-26-2021 SARS-CoV-2 (COVID-19) RNA BONNIE+probe Ql (Unsp spec) Not detected Normal NOTDET [facility] Comment on above: Result Comment: Rapid NAAT: The specimen is NEGATIVE for SARS-CoV-2, the novel coronavirus associated with COVID-19. The ID NOW COVID-19 assay is designed to detect the virus that causes COVID-19 in patients with signs and symptoms of infection who are suspected of COVID-19. An individual without symptoms of COVID-19 and who is not shedding SARS-CoV-2 virus would expect to have a negative (not detected) result in this assay. Negative results should be treated as presumptive and, if inconsistent with clinical signs and symptoms or necessary for patient management, should be tested with an alternative molecular assay. Negative results do not preclude SARS-CoV-2 infection and should not be used as the sole basis for patient management decisions. Fact sheet for Healthcare Providers: https://www.fda.gov/media/125001/download Fact sheet for Patients: https://www.fda.gov/media/941463/download Methodology: Isothermal Nucleic Acid Amplification Performed By: #### C OVRB #### [facility] [address] [place] [address] Product Safety Test Engineer: Michoacano Emanuel DO Salicylateon 05-26-2021 Salicylate <1 Low 3-10 [facility] Comment on above: Performed By: #### U RC #### [facility] [address] [place] [address] Product Safety Test Engineer: Michoacano Emanuel DO [address] [address] Product Safety Test Engineer: Henrique Hill MD Urinalysis, Routineon 2021 Bilirubin, SemiQt,Ur Negative Normal NEG [facility] Comment on above: Performed By: #### U MICAO, FRANCESCA, UA #### [facility] [address] [place] [address] Product Safety Test Engineer: Michoacano Emanuel DO Blood, Urine Negative Normal NEG [facility] Comment on above: Performed By: #### U MICAO, FRANCESCA, UA #### [facility] [address] [place] [address] Product Safety Test Engineer: Michoacano Emanuel DO Clarity (U) Clear Normal CLEAR [facility] Comment on above: Performed By: #### U MICAO, FRANCESCA, UA #### [facility] [address] [place] [address] Product Safety Test Engineer: Michoacano Emanuel DO Color (U) Yellow Normal YEL [facility] Comment on above: Performed By: #### U MICAO, FRANCESCA, UA #### [facility] [address] [place] [address] Product Safety Test Engineer: Michoacano Emanuel DO Glucose Ql (U) Negative Normal NEG [facility] Comment on above: Performed By: #### U MICAO, FRANCESCA, UA #### [facility] [address] [facility] [place] [address] Product Safety Test Engineer: Michoacano Emanuel DO Ketones Ql (U) SMALL Abnormal NEG [facility] Comment on above: Performed By: #### U MICAO, FRANCESCA, UA #### [facility] [address] [facility] [place] [address] Product Safety Test Engineer: Michoacano Emanuel DO Leukocyte esterase Test strip Ql (U) LARGE Abnormal NEG [facility] Comment on above: Performed By: #### U MICAO, FRANCESCA, UA #### [facility] [address] [place] [address]. [place] [address] Product Safety Test Engineer: Michoacano Emanuel DO Nitrite,Ur Negative Normal NEG [facility] Comment on above: Performed By: #### U MICAO, FRANCESCA, UA #### [facility] [place] [address] Product Safety Test Engineer: Michoacano Emanuel DO PH,Ur 5.0 Normal 5.0-8.0 [facility] Comment on above: Performed By: #### U MICAO, FRANCESCA, UA #### [facility] [place] [address] Product Safety Test Engineer: Michoacano Emanuel DO Protein Ql (U) Negative Normal NEG [facility] Comment on above: Performed By: #### U MICAO, FRANCESCA, UA #### [facility] [place] [address] Product Safety Test Engineer: Michoacano Emanuel DO Spec. [place],Ur 1.009 Normal 1.000-1.030 [facility] Comment on above: Performed By: #### U MICAO, FRANCESCA, UA #### [facility] [address] [place] [address]. [place] [address] Product Safety Test Engineer: Michoacano Emanuel DO Urobilinogen,Ur Normal Normal NORM [facility] Comment on above: Performed By: #### U VIRA FRANCESCA, UA #### [facility] [address] [place] [address] Product Safety Test Engineer: Michoacano Eamnuel DO Urinalysis,Microon 2 Bacteria None Normal NONE [facility] Comment on above: Performed By: #### U VIRA FRANCESCA, UA #### [facility] [address] [place] [address] Product Safety Test Engineer: Michoacano Emanuel DO Casts 3 to 5 Normal [facility] Comment on above: Performed By: #### Jae CONSTANTINO FRANCESCA, UA #### [facility] [address] [place] [address] Product Safety Test Engineer: Michoacano Emanuel DO Epithelial cells LM Ql (Urine sed) 0 TO 2 Normal [facility] Comment on above: Performed By: #### Jae CONSTANTINO FRANCESCA, UA #### [facility] [address] [place] [address] Product Safety Test Engineer: Michoacano Emanuel DO Urine RBC's 0 TO 2 Normal [facility] Comment on above: Performed By: #### Jae CONSTANTINO FRANCESCA, UA #### [facility] [address] [place] [address] Product Safety Test Engineer: Michoacano Emanuel DO Urine WBC's 21 TO 50 Normal [facility] Comment on above: Performed By: #### U VIRA FRANCESCA, UA #### [facility] [address] [place] [address] Product Safety Test Engineer: Michoacano Emanuel DO RESPIRATORY PANEL PLUSon Adenovirus Not detected Normal NOT DETECTED [facility] Comment on above: Performed By: #### R SPLUS #### [facility] [address] [place] [address] Dr. Parth Goins Parapertusis Not detected Normal NOT DETECTED [facility] Comment on above: Performed By: #### R SPLUS #### [facility] [address] [place] [address] Dr. Parth Goins Pertussis Not detected Normal NOT DETECTED [facility] Comment on above: Performed By: #### R SPLUS #### [facility] [address] [place] [address] Dr. Parth Brooks Chlamydia Pneumoniae Not detected Normal NOT DETECTED [facility] Comment on above: Performed By: #### R SPLUS #### [facility] [address] [place] [address] Dr. Parth Brooks Coronavirus 229E Not detected Normal NOT DETECTED [facility] Comment on above: Performed By: #### R SPLUS #### [facility] [address] [place] [address] Dr. Parth Brooks Coronavirus HKU1 Not detected Normal NOT DETECTED [facility] Comment on above: Performed By: #### R SPLUS #### [facility] [address] [place] [address] Dr. Parth Brooks Coronavirus NL63 Not detected Normal NOT DETECTED [facility] Comment on above: Performed By: #### R SPLUS #### [facility] [address] [place] [address] Dr. Parth Brooks Coronavirus OC43 Not detected Normal NOT DETECTED [facility] Comment on above: Performed By: #### R SPLUS #### [facility] [address] [place] [address] Dr. Parth Brooks Influenza A H1 2009 Not detected Normal NOT DETECTED [facility] Comment on above: Performed By: #### R SPLUS #### [facility] [address] [place] [address] Dr. Parth Brooks Influenza A H3 Not detected Normal NOT DETECTED [facility] Comment on above: Performed By: #### R SPLUS #### [facility] [address] [place] [address] Dr. Parth Brooks Influenza B Not detected Normal NOT DETECTED [facility] Comment on above: Performed By: #### R SPLUS #### [facility] [address] [place] [address] Dr. Parth Brooks Metapneumovirus Not detected Normal NOT DETECTED [facility] Comment on above: Performed By: #### R SPLUS #### [facility] [address] [place] [address] Dr. Parth Brooks Mycoplas. Pneumoniae Not detected Normal NOT DETECTED [facility] Comment on above: Performed By: #### R SPLUS #### [facility] [address] [place] [address] Dr. Parth Brooks Parainfluenza 1 Not detected Normal NOT DETECTED [facility] Comment on above: Performed By: #### R SPLUS #### [facility] [address] [place] [address] Dr. Parth Brooks Parainfluenza 2 Not detected Normal NOT DETECTED [facility] Comment on above: Performed By: #### R SPLUS #### [facility] [address] [place] [address] Dr. Parth Brooks Parainfluenza 3 Not detected Normal NOT DETECTED [facility] Comment on above: Performed By: #### R SPLUS #### [facility] [address] [place] [address] Dr. Parth Brooks Parainfluenza 4 Not detected Normal NOT DETECTED [facility] Comment on above: Performed By: #### R SPLUS #### [facility] [address] [place] [address] Dr. Parth Brooks Rhino/Enterovirus Not detected Normal NOT DETECTED [facility] Comment on above: Performed By: #### R SPLUS #### [facility] [address] [place] [address] Dr. Parth MARQUEZ Header 1 RESPIRATORY PANEL: VIRUSES Normal [facility] Comment on above: Performed By: #### R SPLUS #### [facility] [address] [place] [address] Dr. Yilan Brooks RP2 Header 2 RESPIRATORY PANEL: BACTERIA Normal [facility] Comment on above: Performed By: #### R SPLUS #### [facility] [address] [place] [address] Dr. Parth Brooks RSV Not detected Normal NOT DETECTED [facility] Comment on above: Performed By: #### R SPLUS #### [facility] [address] [place], [place] [id number] Dr. Parth Brooks SARS-CoV-2 (COVID-19) RNA BONNIE+probe Ql (Unsp spec) Not detected Normal NOT DETECTED [facility] Comment on above: Performed By: #### R SPLUS #### [facility] [address] [place] [address] Dr. Parth Brooks Vital Signs Date Time Vital Sign Value Performing Clinician Facility 04-20-2023 10:04-0500 Body mass index (BMI) [Ratio] 30.19 kg/m2 Rosibel Hemmer PA Work Phone: [facility] 04-20-2023 10:04-0500 Body weight 77.29 kg Rosibel Hemmer PA Work Phone: [facility] 04-20-2023 10:04-0500 Diastolic blood pressure 72 mm[Hg] Rosibel Hemmer PA Work Phone: [facility] 04-20-2023 10:04-0500 Heart rate 82 /min Rosibel Hemmer PA Work Phone: [facility] 04-20-2023 10:04-0500 Respiratory rate 14 /min Rosibel Hemmer PA Work Phone: [facility] 04-20-2023 10:04-0500 SaO2% (BldA) [Mass fraction] 96 % Rosibel Hemmer PA Work Phone: [facility] 04-20-2023 10:04-0500 Systolic blood pressure 116 mm[Hg] Rosibel Hemmer PA Work Phone: [facility] 02-11-2022 10:40-0500 Body height 160.02 cm Liseth Godoy Other [facility] Other 02-11-2022 10:40-0500 Body mass index (BMI) [Ratio] 28.34 kg/m2 Liseth Godoy Other [facility] Other 02-11-2022 10:40-0500 Body temperature 99.4 [degF] Liseth Godoy Other [facility] Other 02-11-2022 10:40-0500 Body weight 72.58 kg Liseth Godoy Other [facility] Other 02-11-2022 10:40-0500 Respiratory rate 18 /min Liseth Godoy Other [facility] Other 02-11-2022 10:40-0500 SaO2% (BldA) [Mass fraction] 96 % Liseth Godoy Other [facility] Other Encounters Encounter Date Encounter Type Care Provider Facility Start: 05-30-2023 End: 05-30-2023 ambulatory ROSIBEL QUINTANILLA Not Available Start: 05-22-2023 End: 05-22-2023 ambulatory ROSIBEL QUINTANILLA Not Available Start: 04-20-2023 End: 04-20-2023 ambulatory ROSIBEL QUINTANILLA Not Available Start: 04-20-2023 End: 04-20-2023 Office outpatient visit 25 minutes Rosibel Quintanilla PA Work Phone: [facility] Comment on above: Essential hypertensi on (CMS/HCC) (Primary Dx); Moderate persistent asthma without complication (CMS/HCC); Controlled type 2 diabetes mellitus without complication, without long-term current use of insulin (CMS/HCC); Moderate episode of recurrent major depressive disorder (HCC) (CMS/HCC) Start: 03-08-2022 End: 03-08-[address] BAUTISTA MONTOYA Facility: Start: 02-11-2022 End: 02-11-2022 ambulatory Liseth Godoy Other [facility] Other Start: 02-11-2022 Office outpatient vi sit 15 minutes Liseth Godoy [facility] [place] Start: 07-27-2021 End: 07-27-[address] BAUTISTA MONTOYA Facility:[facility]1 Start: 05-26-2021 End: 05-30-2021 Evaluation and management of inpatient RAMÓNSulema [facility] Start: 03-29-2021 End: 03-29-[address] AVRIL HARPER Facility:[facility]1 Procedures Date Procedure Procedure Detail Performing Clinician Start: 04-20-2023 Hemoglobin glycosylated a1c Rosibel PARADA Work Phone: Start: 12-22-2021 Mammography Rosibel PARADA Work Phone: Start: 03-17-2016 Colonoscopy Rosibel PARADA Work Phone: Start: 05-27-2015 H/O: hysterectomy History of hysterectomy Rosibel PARADA Work Phone: Plan of Treatment Date Care Activity Detail Author Start: 03-17-2026 Screening for malign ant neoplasm of colon [facility] Start: 08-14-2023 End: 08-14-2023 Patient encounter procedure 08/14/2023 1:45 PM EDT Office Visit [facility] [address] [place] [address] Mary Anne Awan MD [address] [place] [address] [facility] Start: 07-19-2023 Hemoglobin A1c measurement Diabetes: Hemoglobin A1C [facility] Start: 07-19-2023 End: 07-19-2023 Patient encounter procedure 07/19/2023 11:30 AM EDT Office Visit [facility] [address] [place] [id number] Rosibel Quintanilla PA [address] [place] [address] [facility] Start: 06-13-2023 Urine screening for protein Diabetes: Urine Protein Screening [facility] Start: 05-18-2023 Glaucoma screening Diabetes: R etinopathy Screening [facility] Start: 12-22-2022 Screening for malign ant neoplasm of breast Mammogram [facility] Start: 1955 Medicare Annual Well ness (AWV) Medicare Annual Wellness (AWV) [facility] Start: 1955 Screening for malign ant neoplasm of colon [facility] Immunizations Immunization Date Immunization Notes Care Provider Fa cility 01-08-2023 Influenza, High-dose Seasonal, Quadrivalent, Preservative Free Rosibel Hemmer PA Work Phone: [facility] 03-14-2022 Pneumococcal Conjuga te PCV 15 Rosibel Hemmer PA Work Phone: [facility] 12-29-2021 influenza, injectabl e, quadrivalent, preservative free Rosibel Hemmer PA Work Phone: [facility] 01-07-2021 influenza, injectabl e, quadrivalent, preservative free Rosibel Hemmer PA Work Phone: [facility] 12-19-2019 influenza, injectabl e, quadrivalent, preservative free Rosibel Hemmer PA Work Phone: [facility] 12-01-2013 pneumococcal polysaccharide vaccine, 23 valent Rosibel Hemmer PA Work Phone: [facility] 03-21-2013 pneumococcal polysaccharide vaccine, 23 valent Rosibel Hemmer PA Work Phone: [facility] Payers Date Payer Category Payer Medicare [id number] 2022 Medicare [id number] 2022 Medicare [id number] 1958 Unknown [id number] 1955 Unknown [id number] 1955 Unknown [id number] [id number] [id number] 1955 Unknown [id number] 2.16.84 [id number] 1955 Unknown [id number] [id number] [id number] 1955 Unknown [id number] 2.16.84 [id number] 1956 Unknown [id number] 2.16.84 [id number] 1955 Unknown [id number] Social History Date Type Detail Facility Unknown if ever smoked [facility] Other Start: 10-01-2022 End: 10-03-2022 Sex Assigned At [facility] Start: 08-24-2022 Tobacco smoking status [facility] Never smoked tobacco [facility] Start: 08-24-2022 Tobacco use and exposure Smokeless tobacco non-user [facility] Start: 04-20-2023 Alcohol intake Ex-drinker (finding) [facility] Start: 10-01-2022 End: 10-03-2022 History of Social function [facility] Within the last year , have you been afraid of your partner or ex-partner? Patient refused [facility] Do you belong to any clubs or organizations such as yazdanism groups, unions, fraternal or athletic groups, or school groups? No [facility] Are you now , , , , never or living with a partner? Refused [facility] How often to you hav e a drink containing alcohol? Never [facility] Do you feel stress - tense, restless, nervous, or anxious, or unable to sleep at night because your mind is troubled all the time - these days [OSQ] Very much [facility] (I/We) worried wheth er (my/our) food would run out before (I/we) got money to buy more. Never true [facility] Start: 09-29-2022 Education 13 [facility] Start: 09-29-2022 Alcohol Comment Caffeine intake: 1-2 cups per day. 1 can of pepsi daily [facility] Start: 1955 Sex Assigned At Not on file [facility] Medical Equipment Procedure Code Equipment Code Equipment Original Text Equipment Identifier Dates USE DIRECTED SUBCUTANEOUSLY THREE TIMES DAILY [id number] Start: 07-24-2022 History of Present illness Narrative 04-20-2023 Rosibel Quintanilla, TAL - 04/20/2023 10:00 AM EST Note Date & Type Note Facility 04-20-2023 History of Presen t illness Narrative HPI Med Refill Additional comments: Budesonide and Formoterol Fumerate Dihydrate Metoprolol Last edited by Macrina Sweet MA on 04/20/2023 10:03 AM. Subjective Patient ID: Clay Cornejo is a 67 y.o. female who presents for a follow up on diabetes. Clay is present today for a follow up on her diabetes. She has stopped taking ozempic for this whole week and would like to discuss changing meds, states it gave her a headache, nausea and didn't feel good for two days. She is also complaining of a sore throat, and congestion that's been going on since Sunday. She has taken allergy medication and tylenol sinus and headache and feels it helps. February and March her Depression/Anxiety have been awful. Has no motivation, eating unhealthy foods. Has noticed since starting Atorvastatin that her hair has gradually been getting thinner. 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 Current Outpatient Medications on File Prior to Visit Medication Sig Dispense Refill Accu-Chek Juany Plus test strip USE DIRECTED SUBCUTANEOUSLY THREE TIMES DAILY albuterol (2.5 MG/3ML) 0.083% nebulizer solution every 8 (eight) hours. albuterol HFA 90 mcg/act inhaler every 4 (four) hours. ALPRAZolam (Xanax) 0.25 MG tablet Take 0.25 mg by mouth in the morning and 0.25 mg before bedtime. ALPRAZolam (Xanax) 0.5 MG tablet Take 1 tablet by mouth 3 (three) times a day as needed for anxiety. Azelastine HCl 0.15 % solution 1 spray in the morning and 1 spray before bedtime. (Patient not taking: Reported on 04/20/2023) 30 mL 2 cetirizine (ZyrTEC ALLERGY) 10 MG tablet 1 (one) time each day at the same time. Cholecalciferol (Vitamin D) 125 MCG (5000 UT) capsule Take 1 capsule (125 mcg) by mouth in the morning. 100 capsule 3 escitalopram (Lexapro) 10 MG tablet TAKE 1 TABLET BY MOUTH IN THE MORNING (INCREASE after 30 days) fluticasone (Flonase) 50 MCG/ACT nasal spray 1 (one) time each day at the same time. montelukast (Singulair) 10 MG tablet 1 (one) time each day at the same time. Multiple Vitamin (Multivitamin Adult) tablet 1 (one) time each day at the same time. omeprazole (PriLOSEC) [address] capsule TAKE 1 CAPSULE BY MOUTH TWICE DAILY for 90 ondansetron ODT (Zofran-ODT) 4 MG disintegrating tablet Take 1 tablet (4 mg) by mouth every 8 (eight) hours if needed for nausea or vomiting. 30 tablet 0 zolpidem (Ambien) 10 MG tablet 1 (one) time each day at the same time. [DISCONTINUED] atorvastatin (Lipitor) 10 MG tablet 1 (one) time each day at the same time. [DISCONTINUED] budesonide-formoterol (Symbicort) 160-4.5 MCG/ACT inhaler every 12 (twelve) hours. [DISCONTINUED] metoprolol succinate XL (Toprol-XL) 50 MG 24 hr tablet 1 (one) time each day at the same time. [DISCONTINUED] semaglutide (Ozempic) 2 MG/1.5ML solution pen-injector Inject 0.25 mg under the skin 1 (one) time per week. 1.5 mL 4 No current facility-administered medications on file prior to visit. Allergies Allergen Reactions Codeine Hives Hydrocodone Nausea Only Hydrocodone-Acetaminophen Other Reaction(s): Vomiting Nsaids Sulfa Antibiotics Hives Vortioxetine Other Reaction(s): loss of appetite, restlessness , insomnia Social History Tobacco Use Smoking status: Never Smokeless tobacco: Never Substance Use Topics Alcohol use: Not Currently Comment: Caffeine intake: 1-2 cups per day. 1 can of pepsi daily Drug use: Never Family History Problem Relation Name Age of Onset Depression Mother Hypertension Mother Heart disease Mother Mental illness Mother Stroke Father Alcohol abuse Father Other (Substance abuse) Brother Mental illness Brother Pneumonia Brother Suicidality Brother Anxiety disorder Daughter Depression Daughter Mental illness Daughter No Known Problems Father's Brother Colon cancer Maternal Grandmother Depression Maternal Grandmother Mental illness Maternal Grandmother Mental illness Paternal Grandmother Melanoma Paternal Grandfather Past Medical History: Diagnosis Date Acute sinusitis Adjustment disorder with anxiety (CMS/HCC) Allergic rhinitis due to other allergic trigger, unspecified seasonality Allergies Arthritis Asthma (CMS/HCC) BMI 27.0-27.9,adult Compression fracture of C-spine (CMS/HCC) Depression (CMS/HCC) Diabetes mellitus (CMS/HCC) 2013 Dyspareunia in female Ear infection Endometriosis Endometriosis Esophageal reflux Family history of cancer Gastroesophageal reflux disease Hearing loss, left High cholesterol (CMS/HCC) High risk HPV infection History of being hospitalized [facility]ated [facility] - Suicidal ideations 05/26/21, 08/2014 History of hysterectomy Hypertension (CMS/HCC) Hypothyroidism (CMS/HCC) Hypothyroidism (CMS/HCC) Insomnia Kidney stones LGSIL Pap smear of vagina Low grade squamous intraepith lesion on cytologic smear cervix (lgsil) Migraine headache (CMS/HCC) Migraine with aura (CMS/HCC) without mention of intractable migraine without mention of status migrainosus Mild chronic gastritis Moderate persistent asthma with (acute) exacerbation (CMS/HCC) Multiple nasal polyps Nasal polyp 2014 Pneumonia 01/2019 1982, 1984 Premenopausal patient Right shoulder tendonitis Sinus infection Torticollis Vaginal infection Past Surgical History: Procedure Laterality Date BACK SURGERY multiple SECTION, LOW TRANSVERSE 1982, 1983 COLONOSCOPY 2017 COLPOSCOPY 06/19/2019 CT ANGIOGRAM HEART CORONARY 01/13/2020 CT ANGIOGRAM TAVR 01/13/2020 CT ANGIOGRAM HEART CORONARY 01/23/2019 CT ANGIOGRAM TAVR 01/23/2019 EGD 08/07/2019 w/ biopsy HM DEXA SCAN IR KYPHOPLASTY 2009 KNEE SURGERY Left 12/15/2020 arthroscopy partial meniscectomy NASAL POLYP EXCISION OTHER SURGICAL HISTORY 2008 sanam filter TOTAL VAGINAL HYSTERECTOMY Visit Vitals BP 116/72 Pulse 82 Resp 14 Wt 170 lb 6.4 oz SpO2 96% BMI 30.19 kg/m Smoking Status Never BSA 1.85 m Review of Systems Constitutional: Negative for chills, fatigue and fever. HENT: Positive for congestion and sore throat. Respiratory: Negative for cough, shortness of breath and wheezing. Cardiovascular: Negative for chest pain, palpitations and leg swelling. Gastrointestinal: Negative for abdominal pain, constipation, diarrhea, nausea and vomiting. Skin: Negative for rash. Psychiatric/Behavioral: Positive for dysphoric mood. Endocrine: Hair loss Objective Physical Exam Constitutional: General: She is not in acute distress. Appearance: Normal appearance. She is well-developed. HENT: Head: Normocephalic and atraumatic. Eyes: General: No scleral icterus. Conjunctiva/sclera: Conjunctivae normal. Cardiovascular: Rate and Rhythm: Normal rate and regular rhythm. Heart sounds: Normal heart sounds. No murmur heard. Pulmonary: Effort: Pulmonary effort is normal. No respiratory distress. Breath sounds: Normal breath sounds. No wheezing, rhonchi or rales. Skin: General: Skin is warm and dry. Neurological: General: No focal deficit present. Mental Status: She is alert and oriented to person, place, and time. Psychiatric: Mood and Affect: Mood is depressed. Speech: Speech normal. Behavior: Behavior normal. Assessment/Plan Diagnoses and all orders for this visit: Essential hypertension ([facility]) - metoprolol succinate XL (Toprol-XL) 50 MG 24 hr tablet; Take 1 tablet (50 mg) by mouth in the morning. Patient's blood pressure is currently well controlled. Continue with current medications and I will continue to monitor. Goal BP remains less than 130/80. Moderate persistent asthma without complication ([facility]) - budesonide-formoterol (Symbicort) 160-4.5 MCG/ACT inhaler; Inhale 2 puffs every 12 (twelve) hours This is a chronic medical condition that is stable since last assessment. No changes in treatment are suggested at this time. Controlled type 2 diabetes mellitus without complication, without long-term current use of insulin ([facility]) - POCT glycosylated hemoglobin (Hb A1C) docked device - empagliflozin (Jardiance) 25 MG; Take 1 tablet (25 mg) by mouth in the morning. Advised pt that her HgbA1c increased from 6.5 to 7.0. Discontinue Ozempic, pt unable to tolerate. Start Jardiance as prescribed. Reviewed drug class with pt including potential risks and benefits, as well as how the medication works to lower glucose. Will recheck her HgbA1c in 3 months. Encouraged her to work on improving her diet. Moderate episode of recurrent major depressive disorder (HCC) (CMS/HCC) Patient is following with Psychiatry for medication management. Just bought a box light to use, encouraged her to start it sabrina. Discontinue Atorvastatin due to hair loss since starting it. Follow up in about 3 months (around 07/19/2023) for Diabetes. documented in this encounter [facility] Clinical Note 04-07-2022 Note Date & Type Note Facility 04-07-2022 Note HISTORY: Bone densit y screening. COMPARISON: None PROCEDURE: Imaging of the forearm was obtained for bone density evaluation. FINDINGS: REGION BMD (g/cm??) YOUNG ADULT T-SCORE AGE-MATCHED Z-SCORE FOREARM (03/21) 0.523 -2.8 -1.0 The mean BMD and corresponding T-score listed above indicate: Osteoporosis and thus places the patient at a significant increased risk for fracture. IMPRESSION: OSTEOPOROSIS : RECOMMEND ONE YEAR FOLLOW-UP. PROCEDURE: Imaging of the bilateral hips was obtained for bone density evaluation. FINDINGS: REGION BMD (g/cm??) YOUNG ADULT T-SCORE AGE-MATCHED Z-SCORE LEFT NECK 0.591 -2.3 -0.8 RIGHT NECK 0.621 -2.1 -0.5 The mean BMD and corresponding T-score listed above indicate: Osteopenia and places the patient at a mild to moderate increased risk for fracture. There may be a future risk of developing osteoporosis. IMPRESSION: OSTEOPENIA : ONE YEAR FOLLOW-UP RECOMMENDED Comment: The T-score is the primary focus of the interpretation of a patient???s bone mineral density measurement. The T-score is the number of standard deviations and individual is above or below the mean value for a young female having normal bone mass. The WHO defines osteoporosis based on the T-score value: +1.0 to -0.9 : Normal bone mass -1.0 to -2.5 : Osteopenia and thus may be at future risk of fracture. -2.6 to -5.0 : Osteoporosis and at significantly increased risk of fracture. Report reported and signed by Waldemar Cintron on 04/07/2022 [id number] [employer] Evaluation note 02-11-2022 Note Date & Type Note Facility 02-11-2022 Evaluation note Encounter Date Diagnosis Assessment Notes Jan, Contact with and (suspected) exposure to other viral communicable diseases (ICD-10 - Z20.828) Jan, COVID-19 (ICD-10 - U07.1) Discharge Instructions for COVID-19 (Suspected or Confirmed ) material was printed Drink plenty fluids, get plenty of rest. Take Tylenol or Motrin as needed for aches pains or fevers. Continue home medications as prescribed. You must quarantine for 5 days after the onset of your symptoms of COVID. Follow-up with your family physician if no improvement in 2 to 3 days. Jan, History of asthma (ICD-10 - Z87.09) [facility] Other Evaluation note Note Date & Type Note Facility Evaluation note Diagnosis Essential hypertension (CMS/HCC)- Primary Unspecified essential hypertension Moderate persistent asthma without complication (CMS/HCC) Controlled type 2 diabetes mellitus without complication, without long-term current use of insulin (CMS/HCC) Moderate episode of recurrent major depressive disorder (HCC) (CMS/HCC) documented in this encounter [facility] History general Narrative - Reported Note Date & Type Note Facility History general Narrative - Reported Type Medical History asthma Medical History depression Medical History anxiety Medical History pneumonia Medical History blood clots Medical History hypothyroidism Medical History insomnia Medical History HTN Medical History PTSD Medical History Borderline diabetic Surgical History nasal polyps Mar 2013 Surgical History hysterectomy Surgical History back surgery Surgical History sanam filter March 2008 Surgical History kyphoplasty 2008 Surgical History nasal polypectomy Hospitalization History see above surgical histo ry Hospitalization History asthma 04/06 [facility] Other Summary Purpose Family History No Family History Records FoundNo Family History Records FoundNo Family History Records FoundNo Family History Records Found Advance Directives No Advanced Directives Records FoundNo Advanced Directives Records FoundNo Advanced Directives Records FoundNo Advanced Directives Records Found Additional Source Comments INFORMATION SOURCE (unrecogn ized section and content) DATE CREATED AUTHOR 05/31/2021 [facility] DATE CREATED AUTHOR 'S ORGANIZ ATION 03/15/2022 [facility] DATE CREATED AUTHOR AUTHOR'S ORGANIZ ATION 04/12/2022 [facility] dical Specialist DATE CREATED AUTHOR AUTHOR'S ORGANIZ ATION 06/01/2023 [facility] dical Specialists EPIC REASON FOR VISIT (unrecogniz ed section and content) Reason Comments Med Refill Budesonide and Formo terol Fumerate DihydrateMetoprolol Care Teams (unrecognized sec tion and content) Automatic Trimming Sewer Relationship Specialty Start Date End Date Rosibel Quintanilla PA [address] [facility] [address] [place] [address] PCP - General Family Medicine 08/16/22 FOR RECORDS PERTAINING TO PATIENTS WHO ARE OR HAVE BEEN ENROLLED IN A CHEMICAL DEPENDENCY/SUBSTANCEABUSE PROGRAM, SOME INFORMATION MAY BE OMITTED. This clinical summary was aggregated from multiple sources. Caution should be exercised in using it in the provision of clinical care. This summary normalizes information from multiple sources, and as a consequence, information in this document may materially change the coding, format and clinical context of patient data. In addition, data may be omitted in some cases. CLINICAL DECISIONS SHOULD BE BASED ON THE PRIMARY CLINICAL RECORDS. [employer] provides no warranty or guarantee of the accuracy or completeness of information in this document.
[2023-07-13 15:11] LABS: Age Gdln ACOG Testing Note (.); Pap IG (Image Guided) Note (.)
== END 2023-07-09 22:30 | disposition home or self-care (01) ==
LOC: LAB 22:29
PROVIDERS: PCP Physician Assistant; Visit Provider Physician Assistant
DX: Z01.419 Encounter for gynecological examination (general) (routine) without abnormal findings (principal)
CPT/HCPCS: G0145